=== PATIENT | male | born 1965 | race Caucasian/White ===

== ENCOUNTER 2019-12-11 15:09 | Emergency (ER) | payer BC ==
[2019-12-11 15:51] VITALS: BP 110/68
--- NOTE | 2019-12-11 16:37 | UC ---
FLU HPI - HPI Summary HPI Summary: Pt presents c/osudden onset of fever, chills, body aches, cough X 3 days. - History of Current Complaint Chief Complaint: UCGeneralIllness Stated Complaint: FEVER,CHILLS,ACHES,COUGH Time Seen by Provider: 12/11/19 16:28 Hx Obtained From: Patient Onset/Duration: Sudden Onset, Lasting Days, Still Present, Worse Since - onset Severity Currently: Moderate Severity Initially: Severe Pain Intensity: 8 Associated Signs & Symptoms: Positive: Fever, Myalgia, Nasal Congestion Related Hx: Possible Flu/Infectious Exposure - Risk Factors Influenza Risk Factors: Negative - Allergy/Home Medications Allergies/Adverse Reactions: Allergies Allergy/AdvReac Type Severity Reaction Status Date / Time No Known Allergies Allergy Verified 12/11/19 15:51 PMH/Surg Hx/FS Hx/Imm Hx Previously Healthy: Yes - Surgical History Surgical History: None - Family History Known Family History: Positive: Cardiac Disease - Social History Occupation: Employed Full-time Lives: With Family Alcohol Use: Occasionally Substance Use Type: None Smoking Status (MU): Light Every Day Tobacco Smoker Have You Smoked in the Last Year: Yes Household Exposure Type: Cigarettes - Immunization History Vaccination Up to Date: Yes Review of Systems All Other Systems Reviewed And Are Negative: Yes Constitutional: Positive: Fever, Chills, Fatigue Skin: Positive: Negative Eyes: Positive: Negative ENT: Positive: Sinus Congestion Respiratory: Positive: Cough Cardiovascular: Positive: Negative Gastrointestinal: Positive: Negative Genitourinary: Positive: Negative Motor: Positive: Weakness - fatigued Neurovascular: Positive: Negative Musculoskeletal: Positive: Myalgia Neurological: Positive: Negative Psychological: Positive: Negative Is Patient Immunocompromised?: No Physical Exam Triage Information Reviewed: Yes Appearance: Ill-Appearing Vital Signs: Initial Vital Signs Temp 99.4 F 12/11/19 15:43 Pulse 84 12/11/19 15:43 Resp 16 12/11/19 15:43 BP 110/68 12/11/19 15:43 Pulse Ox 97 12/11/19 15:43 Vital Signs Reviewed: Yes Eye Exam: Normal ENT: Positive: Nasal congestion Dental Exam: Normal Neck exam: Normal Respiratory: Positive: Normal breath sounds, No respiratory distress Cardiovascular Exam: Normal Musculoskeletal Exam: Normal Neurological Exam: Normal Psychological Exam: Normal Skin Exam: Normal Flu Course/Dx - Differential Dx/Diagnosis Differential Diagnosis/HQI/PQRI: Influenza, Upper Respiratory Infection Provider Diagnosis: Influenza A Discharge ED - Sign-Out/Discharge Documenting (check all that apply): Patient Departure All imaging exams completed and their final reports reviewed: No Studies - Discharge Plan Condition: Stable Disposition: HOME Prescriptions: Oseltamivir CAP* [Tamiflu CAP*] 75 mg PO Q12H #10 cap Patient Education Materials: Influenza (ED), Safe Use of NSAIDs (ED) Forms: *Work Release Referrals: [facility] [Outside] - If Needed No Primary Care Phys,NOPCP [Primary Care Provider] - - Billing Disposition and Condition Condition: STABLE Disposition: Home
[2019-12-11 16:41] LABS: Influenza A Molecular POSITIVE (Negative)
== END 2019-12-11 16:54 | disposition home or self-care (01) ==
LOC: UCCORT 15:09
DX: J10.1 Influenza due to other identified influenza virus with other respiratory manifestations (principal); F17.200 Nicotine dependence, unspecified, uncomplicated
CPT/HCPCS: 99202; G0463